=== PATIENT | female | born 2000 | race African-American/Black ===

== ENCOUNTER → 2025-07-21 10:32 | Outpatient (CLI) | payer OTHER, SELFPAY ==
[2025-07-21 11:59] LABS: Add Manual Diff / Slide Review NO; Hematocrit 35.1 % (36-46); Hemoglobin 12.4 g/dL (12.0-16.0); Lymphocytes Absolute Auto 1300 /uL (1100-4500); Mean Corpuscular HGB Conc 35.4 % (30-36); Mean Corpuscular Hemoglobin 31.3 PG (26-34); Mean Corpuscular Volume 88.4 fL (80-100); Platelet Count 206 X10^3/uL (150-400)
[2025-07-21 12:01] LABS: Alanine Aminotransferase 15 IU/L (<35); Blood Urea Nitrogen 12 mg/dL (7-17); Estimated Glomerular Filt Rate > 60 mL/min (>60); Uric Acid 2.9 mg/dL (2.5-6.2)
[2025-07-21 12:11] LABS: Appearance Urine UA CLEAR; Bilirubin Urine UA NEGATIVE (NEGATIVE); Color Urine UA YELLOW; Glucose Urine UA NEGATIVE (Negative); Ketones Urine UA NEGATIVE (NEGATIVE); Leukocyte Esterase Urine UA NEGATIVE (NEGATIVE); Nitrite Urine UA NEGATIVE (Negative); Occult Blood Urine UA NEGATIVE (Negative); Protein Urine UA NEGATIVE (Negative); Specific Gravity Urine UA 1.025 (1.000-1.035); Urobilinogen Urine UA 1.0 E.U./dL (0.2); pH Urine UA 6.0 (4.5-8.0)
[2025-07-21 12:33] LABS: Hepatitis B Surface Antigen NEGATIVE s/c (NEGATIVE)
[2025-07-21 12:34] LABS: Protein (Total) Urine Random 6 mg/dL (0-12); Protein Creatinine Ratio Urine 0.03 GRAM/24H
[2025-07-21 12:49] LABS: HIV 1 & 2 Ab/Ag 4th Gen Combo NEGATIVE (NEGATIVE); Hep C Virus Ab w/Reflex Quant NEGATIVE s/c (NEGATIVE)
[2025-07-21 13:36] LABS: Urine N gonorrhoeae NOT DETECTED
[2025-07-21 13:38] LABS: Urine Chlamydia NOT DETECTED
== END ==
PROVIDERS: PCP Family Medicine; Referring Provider Family Medicine; Visit Provider Family Medicine
DX: O09.299 Supervision of pregnancy with other poor reproductive or obstetric history, unspecified trimester (principal)
CPT/HCPCS: 36415; 80055; 81003; 82565; 82570; 84156; 84450; 84460; 84520; 84550; 86787; 86803; 86850; 86900; 86901; 87086; 87389; 87491; 87591

== ENCOUNTER → 2025-09-13 10:41 | Outpatient (CLI) | payer OTHER, SELFPAY ==
--- NOTE | 2025-09-13 10:43 | DI.US.S_ITS ---
PROCEDURE: US OB >= 14 WEEKS FETUS INDICATIONS: anatomy scan OUTSIDE/PRIOR DATING DATA: First dating scan (date and location): 08/16/2025. Estimated date of delivery (KAY) from first dating scan: 01/19/2026. The calculations are made using the clinic KAY of 01/22/2026. TECHNIQUE: Real-time scanning was performed of the fetus, with image documentation and biometric measurements. Endovaginal scanning: Not performed COMPARISON: None. FINDINGS: General: A single living intrauterine gestation is present. Presentation: Vertex. Placenta: Placental position is posterior, without previa. Amniotic fluid index: 16.6 cm, normal range is 5-24 cm. Single deepest vertical pocket is 6.9 cm. heart rate: 143 beats per minute. Maternal cervical canal: 4.4 cm long. Normal lower limit is 2.5 cm. biometrics: Biparietal diameter: 4.8 cm, 20 weeks 3 days. 17th percentile Head circumference: 16.7 cm, 19 weeks 2 days. Percentile below the 5th percentile. Abdominal circumference: 14.9 cm, 20 weeks 1 day. 12th percentile Femur length: 3.1 cm, 19 weeks 4 days. 3rd percentile Clinically estimated gestational age: 21 weeks 2 days Composite gestational age from present scan: 19 weeks 6 days Estimated weight and percentile: 316 g, 3rd percentile Anatomic survey: Neuro: Ventricles are non-dilated at less than 10 mm. Cisterna magna is normal at 3-11 mm. Cerebellum is normal in size and morphology. Nuchal skin fold: Normal at less than 6 mm between 14-21 weeks gestational age. Face: Nose and lips, facial profile are normal. Spine: No evidence for spina bifida. Heart: 4-chambered heart is present, with normal ventricular outflow tracts. Diaphragm: Diaphragm is intact. Stomach: Left-sided stomach is present. Kidneys: No hydronephrosis. Normal is less than 5 mm in 2nd trimester, less than 7 mm in 3rd trimester. Cord: 3-vessel cord has orthotopic insertion. Bladder: Normal in size. Extremities: All 4 extremities identified. Mild pelviectasis of the maternal right kidney. IMPRESSION: 1. Pozo living intrauterine at 19 weeks 6 days based on today's ultrasound. This is concordant with the prior ultrasound +/-2 weeks. However, the estimated weight is in the 3rd percentile overall. The femur length and head circumference are measuring less than the 5th percentile. Findings raising the possibility of intrauterine growth restriction. -Recommend clinical correlation. 2. Normal placenta and amniotic fluid. 3. Normal and complete anatomic survey. We strive to produce accurate, complete, and clear reports of imaging services. To assist us in improving patient care, this report was composed using standard report templates and voice recognition software. Therefore, it may contain abnormal punctuation, insertions and/or omissions. Occasional wrong-word or sound-alike substitutions may occur. Though we review the report and make efforts to correct it, we do recommend that the report be read carefully in proper context to recognize any text inaccuracies. Dictated by: Mesfin Lin M.D. on 09/14/2025 at 9:01 Approved by: Mesfin Lin M.D. on 09/14/2025 at 9:16
[2025-09-16 19:07] LABS: AFP, Serum 85.6 ng/mL (.); Calc Gestational Age Ultrasound (.); Estriol, Free 1.77 ng/mL (.); Inhibin A, Dimeric 149.53 pg/mL (.); Inhibin A, MoM See interpretation. (.); Maternal Ethnicity Black (.); hCG, MoM See interpretation. (.)
== END ==
PROVIDERS: PCP Family Medicine; Referring Provider Family Medicine; Visit Provider Family Medicine
DX: O09.92 Supervision of high risk pregnancy, unspecified, second trimester (principal); Z3A.19 19 weeks gestation of pregnancy
CPT/HCPCS: 36415; 76811; 82105; 82677; 84702; 86336

== ENCOUNTER 2025-10-16 21:37 | Observation (INO) | payer OTHER, SELFPAY ==
--- NOTE | 2025-10-16 21:57 | DI.US.S_ITS ---
PROCEDURE: US OB BIOPHYSICAL PROFILE INDICATIONS: wellbeing OUTSIDE/PRIOR DATING DATA: Last menstrual period (LMP): Unknown. LMP-based estimated date of delivery (KAY): Not applicable. First dating scan (date and location): August 16, 2025. Estimated date of delivery (KAY) from first dating scan: January 22, 2026. The calculations are made using the clinical KAY of January 22, 2026. TECHNIQUE: Real-time scanning was performed of the fetus for biophysical profile, with image documentation. Color and pulse Doppler interrogation was also performed of the umbilical artery near its insertion into the placenta. Endovaginal scanning: Not performed COMPARISON: None. FINDINGS: General: A single living intrauterine gestation is present. Presentation: Vertex. Placenta: Placental position is posterior , without previa. No findings to suggest placental abruption. Amniotic fluid index: 17.7 cm, normal range is 5-24 cm. Single deepest vertical pocket is 6.8 cm. heart rate: 167 beats per minute. Maternal cervical canal: 4.0 cm long. Normal lower limit is 2.5 cm. Clinically estimated gestational age: 26 weeks and 0 days Biophysical profile: Tone: 2 points. Movement: 2 points. Respiration: 2 points. Largest pocket of fluid: 2 points. IMPRESSION: Single living intrauterine gestation with estimated gestational age of approximately 26 weeks and 0 days. Biophysical profile score of 8 out of 8. Four-quadrant TERRELL measuring 17.7 cm with largest vertical pocket measuring 6.8 cm. We strive to produce accurate, complete, and clear reports of imaging services. To assist us in improving patient care, this report was composed using standard report templates and voice recognition software. Therefore, it may contain abnormal punctuation, insertions and/or omissions. Occasional wrong-word or sound-alike substitutions may occur. Though we review the report and make efforts to correct it, we do recommend that the report be read carefully in proper context to recognize any text inaccuracies. Dictated by: Ronnell Steel M.D. on 10/16/2025 at 23:25 Approved by: Ronnell Steel M.D. on 10/16/2025 at 23:27
[2025-10-16] MEDS: ONDANSETRON 4 MG ODT SL (22:18)
[2025-10-16] MEDS: ACETAMINOPHEN 325 MG TABLET 975 MG PO (22:18)
[2025-10-16 23:06] LABS: Appearance Urine UA CLEAR; Bilirubin Urine UA NEGATIVE (NEGATIVE); Color Urine UA YELLOW; Glucose Urine UA NEGATIVE (Negative); Ketones Urine UA NEGATIVE (NEGATIVE); Leukocyte Esterase Urine UA NEGATIVE (NEGATIVE); Nitrite Urine UA NEGATIVE (Negative); Occult Blood Urine UA NEGATIVE (Negative); Protein Urine UA NEGATIVE (Negative); Specific Gravity Urine UA 1.020 (1.000-1.035); Urobilinogen Urine UA 0.2 E.U./dL (0.2)
[2025-10-16 23:08] LABS: pH Urine UA 6.0 (4.5-8.0)
[2025-10-16 23:16] LABS: Culture Indicated Urine Cult Not Indicated
== END 2025-10-16 23:44 | disposition home or self-care (01) ==
PROVIDERS: Admitting Provider Student in an Organized Health Care Education/Training Program; PCP Family Medicine; Referring Provider Student in an Organized Health Care Education/Training Program; Visit Provider Student in an Organized Health Care Education/Training Program
DX: O26.892 Other specified pregnancy related conditions, second trimester (principal); R10.32 Left lower quadrant pain; Z87.59 Personal history of other complications of pregnancy, childbirth and the puerperium; Z3A.26 26 weeks gestation of pregnancy
CPT/HCPCS: 76819; 81001; G0378; G0379